=== PATIENT | female | born 1945 | race Caucasian/White ===

== ENCOUNTER 2016-12-28 09:59 | Outpatient (CLI) | payer MEDICARE ==
--- NOTE | 2016-12-31 16:00 | Mammography Report ---
DIGITAL SCREENING MAMMOGRAM: 12/28/2016 CLINICAL INDICATION: A 71-year-old, for screening. COMPARISON: 11/2013, 05/2012, 11/2009, 12/2007. TECHNIQUE: Routine CC and MLO projections were obtained of the breasts. FINDINGS: The breasts demonstrate scattered fibroglandular densities bilaterally. A circumscribed no dule in the central right breast is stable. Coarse, typically benign calcifications are present. No s uspicious masses, clustered microcalcifications, or regions of architectural distortion are identifie d. IMPRESSION: BENIGN FINDINGS. RECOMMENDATION: ROUTINE ANNUAL SCREENING UNLESS OTHERWISE CLINICALLY INDICATED. BIRADS CATEGORY 2-BENIGN FINDINGS. STANDARD QUALIFYING STATEMENTS 1. This examination was reviewed with the aid of Computer-Aided Detection (CAD). 2. A negative or benign imaging report should not delay biopsy if clinically suspicious findings are present. Consider surgical consultation if warranted. More than 5% of cancers are not identified by i maging. 3. Dense breasts may obscure an underlying neoplasm. JOB #: [id number] EXT JOB #:[id number]
== END 2016-12-28 10:00 | disposition home or self-care (01) ==
LOC: DI 09:59
PROVIDERS: ATTEND Physician Assistant Medical
DX: Z12.31 Encounter for screening mammogram for malignant neoplasm of breast (principal)
CPT/HCPCS: 77067

== ENCOUNTER 2018-01-13 11:50 | Emergency (ER) | payer MEDICARE ==
[2018-01-13 13:00] LABS: BASOPHILS # (AUTO) 0.1 10^3/uL (0.0-0.1); BASOPHILS % (AUTO) 1.3 %; EOSINOPHILS # (AUTO) 0.1 10^3/uL (0.0-0.7); EOSINOPHILS % (AUTO) 1.6 %; LYMPHOCYTES # (AUTO) 2.6 10^3/uL (1.5-3.5); LYMPHOCYTES % (AUTO) 29.2 %; MEAN CORPUSCULAR HEMOGLOBIN 30.6 pg (27.0-31.0); MEAN CORPUSCULAR VOLUME 90.1 fL (81.0-99.0); MONOCYTES # (AUTO) 0.6 10^3/uL (0.0-1.0); MONOCYTES % (AUTO) 7.4 %; NEUTROPHILS # (AUTO) 5.3 10^3/uL (1.5-6.6); NEUTROPHILS % (AUTO) 60.5 %; PLT - PLATELET COUNT 358 10^3/uL (130-450); RED BLOOD COUNT 4.24 10^6/uL (4.20-5.40); RED CELL DISTRIBUTION WIDTH 12.7 % (12.0-15.0); WHITE BLOOD COUNT 8.8 x10^3/uL (4.8-10.8)
[2018-01-13 13:03] LABS: ALBUMIN 4.1 g/dL (3.2-5.5); ALBUMIN/GLOBULIN RATIO 1.2 (1.0-2.2); BILIRUBIN,TOTAL 0.4 mg/dL (0.2-1.0); CALCIUM 8.9 mg/dL (8.5-10.3); CREATININE 0.8 mg/dL (0.4-1.0); TOTAL PROTEIN 7.6 g/dL (6.7-8.2)
--- NOTE | 2018-01-13 13:08 | ED Physician Documentation ---
PD HPI NVD - Stated complaint Stated Complaint: DIARRHEA - Chief complaint Chief Complaint: Abd Pain - History obtained from History obtained from: Patient - History of Present Illness Timing - onset: How many days ago (10) Timing - duration: Days (10) Timing - details: Gradual onset, Waxing and waning Associated symptoms: Abdominal pain (left abdoemn), Loss of appetite. No: Fever , Melena, Hematochezia, Near syncope / syncope, Weight loss, Dysuria, Hematuria Contributing factors: Other (has had loose, not watery, stools daily or so for the past 10 days. Not overt diarrhea per se.). No: Sick contact, Bad food, Travel, Recent antibiotics Improved by: Laying still. No: Eating Worsened by: Moving (hurts with walking and movement.), Palpation. No: Eating Similar symptoms before: Has not had sx before Recently seen: Not recently seen Review of Systems Constitutional: reports: Myalgias, Fatigue. denies: Fever, Chills Ears: denies: Ear pain Nose: denies: Rhinorrhea / runny nose, Congestion Throat: denies: Dental pain / toothache (but has noted bilateral jaw pain the past week or so, no gum swelling. No clicking with chewing. Does hurt more to chew.), Sore throat Cardiac: denies: Chest pain / pressure, Palpitations Respiratory: denies: Dyspnea, Cough GI: reports: Abdominal Pain (left abd), Nausea, Diarrhea (loose and just daily, without blood nor melena.). denies: Vomiting, Constipation, Hematemesis, Bloody / black stool : denies: Dysuria, Frequency Skin: denies: Rash, Lesions Neurologic: reports: Generalized weakness, Headache (mild frontal). 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: Hysterectomy HEENT: Tonsil/Adenoidectomy - Present Medications Home Medications: Ambulatory Orders Medication Instructions Recorded Confirmed Gabapentin 900 mg PO 01/13/18 HYDROcod/ACETAM 5/325 [[place] 5/325] 1 tab PO Q6H PRN #15 tablet 01/13/18 Lisinopril 20 mg PO 01/13/18 Naproxen 375 mg PO BID #20 tablet 01/13/18 - Allergies Allergies/Adverse Reactions: Allergies Allergy/AdvReac Type Severity Reaction Status Date / Time Penicillins Allergy Rash Verified 01/13/18 11:57 - Social History Does the pt smoke?: No Smoking Status: Never smoker Does the pt drink ETOH?: No Does the pt have substance abuse?: No - Family History Family history: reports: Non contributory - Immunizations Immunizations are current?: Yes PD ED PE NORMAL - Vitals Vital signs reviewed: Yes - General General: Alert and oriented X 3, Well developed/nourished - HEENT HEENT: Ears normal, Pharynx benign, Dentition benign, Other (not tender at TMJ per se; no clicking. ) - Neck Neck: Supple, no meningeal sign, No adenopathy - Cardiac Cardiac: RRR, No murmur - Respiratory Respiratory: No respiratory distress, Clear bilaterally - Abdomen Abdomen: Normal bowel sounds, Soft, Non tender, No organomegaly, Other ( tenderness left mid abdomen, without guarding nor percussion tenderness. Pain worse with leg lifting. Right abd not tender. No flank tenderness. ) - Female Female : Deferred - Rectal Rectal: Deferred - Back Back: No CVA TTP, No spinal TTP - Derm Derm: Normal color, Warm and dry, No rash - Extremities Extremities: No deformity, No tenderness to palpate, Normal ROM s pain, No edema , No calf tenderness / cord - Neuro Neuro: Alert and oriented X 3, No motor deficit, Normal speech Results - Vitals Vitals: Vital Signs - 24 hr 01/13/18 01/13/18 01/13/18 11:52 13:43 14:52 Temperature 36.5 C Heart Rate 65 60 61 Respiratory 16 16 17 Rate Blood Pressure 177/79 H 168/78 H 156/80 H O2 Saturation 98 99 100 01/13/18 16:44 Temperature Heart Rate 64 Respiratory 16 Rate Blood Pressure 178/86 H O2 Saturation 100 Oxygen O2 Source Room air - Labs Labs: Laboratory Tests 01/13/18 01/13/18 01/13/18 12:22 12:30 12:30 WBC 8.8 RBC 4.24 Hgb 13.0 Hct 38.2 MCV 90.1 MCH 30.6 MCHC 34.0 RDW 12.7 Plt Count 358 MPV 7.0 L Neut # (Auto) 5.3 Lymph # (Auto) 2.6 [place] # (Auto) 0.6 Eos # (Auto) 0.1 Baso # (Auto) 0.1 Absolute Nucleated RBC 0.01 Nucleated RBC % 0.1 Manual Slide Review Indicated RBC Morph Micro Appear 1+ ANISOCYTOSIS Sodium 133 L Potassium 3.7 Chloride 98 L Carbon Dioxide 29 Anion Gap 6.0 BUN 12 Creatinine 0.8 Estimated GFR (MDRD) 70 L Glucose 98 POC Whole Bld Glucose 115 H Calcium 8.9 Total Bilirubin 0.4 AST 25 ALT 21 Alkaline Phosphatase 65 Total Protein 7.6 Albumin 4.1 Globulin 3.5 Albumin/Globulin Ratio 1.2 Lipase 42 Urine Color Urine Clarity Urine pH Ur Specific [place] Urine Protein Urine Glucose (UA) Urine Ketones Urine Occult Blood Urine Nitrite Urine Bilirubin Urine Urobilinogen Ur Leukocyte Esterase Ur Microscopic Review Urine Culture Comments 01/13/18 13:12 WBC RBC Hgb Hct MCV MCH MCHC RDW Plt Count MPV Neut # (Auto) Lymph # (Auto) [place] # (Auto) Eos # (Auto) Baso # (Auto) Absolute Nucleated RBC Nucleated RBC % Manual Slide Review RBC Morph Micro Appear Sodium Potassium Chloride Carbon Dioxide Anion Gap BUN Creatinine Estimated GFR (MDRD) Glucose POC Whole Bld Glucose Calcium Total Bilirubin AST ALT Alkaline Phosphatase Total Protein Albumin Globulin Albumin/Globulin Ratio Lipase Urine Color YELLOW Urine Clarity CLEAR Urine pH 6.0 Ur Specific [place] <=1.005 Urine Protein NEGATIVE Urine Glucose (UA) NEGATIVE Urine Ketones NEGATIVE Urine Occult Blood NEGATIVE Urine Nitrite NEGATIVE Urine Bilirubin NEGATIVE Urine Urobilinogen 0.2 (NORMAL) Ur Leukocyte Esterase NEGATIVE Ur Microscopic Review NOT INDICATED Urine Culture Comments NOT INDICATED - Rads (name of study) abd CT Radiology: Final report received, Discussed with rads (mass left iliacus muscle that could be c/w hematoma, abscess, tumor - did not narrow it better.) PD MEDICAL DECISION MAKING - ED course Complexity details: reviewed results (mass in left iliacus muscle - could be abscess, hematoma, sarcoma (seems to look more solid than fluid, but clots could have that look) - broad differential from Radiologist. ), considered differential, d/w patient, d/w datapower consultant (Gregory Ramírez, surgery - he will arrange biopsy/draining of the mass. Since normal WBC, no fever, and she is not appearing ill, he did not think it abscess. He did not feel she would need hospitalization, but the treatment can be done outpatient through IR in next couple of days. ) - Sepsis Event Vital Signs: Vital Signs - 24 hr 01/13/18 01/13/18 01/13/18 11:52 13:43 14:52 Temperature 36.5 C Heart Rate 65 60 61 Respiratory 16 16 17 Rate Blood Pressure 177/79 H 168/78 H 156/80 H O2 Saturation 98 99 100 01/13/18 16:44 Temperature Heart Rate 64 Respiratory 16 Rate Blood Pressure 178/86 H O2 Saturation 100 Oxygen O2 Source Room air Departure - Departure Disposition: Home, Self Care Clinical Impression: Muscle mass Condition: Stable Record reviewed to determine appropriate education?: Yes Instructions: Abdominal Pain Follow-Up: Odilon Ramírez MD [Provider Admit Priv/Credential] - Karey Montiel PA-C [Primary Care Provider] - Prescriptions: HYDROcod/ACETAM 5/325 [[place] 5/325] 1 tab PO Q6H PRN #15 tablet PRN Reason: Pain Naproxen 375 mg PO BID #20 tablet Comments: Use naproxen twice daily for inflammation and pain. Add Tylenol or hydrocodone if needed for pain. Call Dr. Ramírez's office (surgeon) today or first thing in the morning for an appointment in the next 2-3 days. You have a mass in the iliacus muscle on the left which could be a small area of bleeding (hematoma), tumor, or abscess. You do not have markers of infection such as fever or elevated white count so does not seem like an infection. This will need to have a aspiration/biopsy to get rid of it and diagnose it. Dr. Ramírez will set that up in the next couple of days. Discharge Date/Time: 01/13/18 16:45
[2018-01-13 13:27] LABS: BILIRUBIN,URINE NEGATIVE (NEGATIVE); GLUCOSE, URINE (UA) NEGATIVE (NEGATIVE); KETONES,URINE (UA) NEGATIVE (NEGATIVE); LEUKOCYTE ESTERASE, URINE NEGATIVE (NEGATIVE); NITRITE,URINE NEGATIVE (NEGATIVE); OCCULT BLOOD,URINE NEGATIVE (NEGATIVE); PROTEIN,URINE NEGATIVE (NEGATIVE); UROBILINOGEN,URINE 0.2 (NORMAL) E.U./dL (NORMAL)
[2018-01-13 13:28] LABS: CLARITY,URINE CLEAR (CLEAR)
[2018-01-13] MEDS ORDERED: ONDANSETRON 4 MG/2 ML VIAL IVP STA (13:29)
[2018-01-13] MEDS ORDERED: SODIUM CHLORIDE 0.9% 1,000 ML IV ONE (13:29)
[2018-01-13] MEDS ORDERED: KETOROLAC 15 MG/ML VIAL IVP STA (13:29)
[2018-01-13 13:31] LABS: RBC MORPHOLOGY (MULTIPLE) 1+ ANISOCYTOSIS (NORMAL)
[2018-01-13] MEDS ORDERED: IOPAMIDOL-300 100 ML VIAL ONE (14:23)
[2018-01-13] MEDS ORDERED: IOPAMIDOL-300 100 ML VIAL IVP ONE (14:52)
--- NOTE | 2018-01-13 15:45 | CT Report ---
Procedure Date: 01/13/2018 Accession Number: [id number] / [id number] Procedure: CT - Abdomen/Pelvis W/ CPT Code: FULL RESULT: EXAM: CT ABDOMEN AND PELVIS EXAM DATE: 01/13/2018 03:03 PM. CLINICAL HISTORY: Left abdominal pain and diarrhea. COMPARISONS: No prior CT exam. Limited abdominal ultrasound 02/28/2016. TECHNIQUE: Routine helical CT imaging was performed through the abdomen and pelvis. IV contrast: ISOVUE 300 100mL. Enteric contrast: No. Reconstructions: Coronal and sagittal. In accordance with CT protocol optimization, one or more of the following dose reduction techniques were utilized for this exam: automated exposure control, adjustment of mA and/or KV based on patient size, or use of iterative reconstructive technique. FINDINGS: Lung Bases: Unremarkable. Liver: Normal. No masses. Gallbladder/Bile Ducts: Cholecystectomy. No biliary duct dilatation. Spleen: Normal caliber. Multiple 2 cm and smaller nonspecific low densities. Pancreas: Normal. Adrenal Glands: Normal. Kidneys: Normal. No masses or hydronephrosis. Peritoneal Cavity/Bowel: Normal. No free fluid, free air or adenopathy. No masses or acute inflammatory process. Appendix not visualized but no inflammatory changes adjacent to the cecum. Pelvic Organs: Hysterectomy. 5.5 x 4.5 x 3.2 cm inhomogeneous and enhancing lesion in the inferior lateral aspect left iliacus muscle, at the level of the left inguinal canal, axial image 56, coronal image 19. This causes medial displacement of the left external iliac vein. No free fluid. No stones in the small caliber urinary bladder. Vasculature: No aneurysms or other significant abnormality. Bones: Multilevel degenerative disk disease throughout the scoliotic spine. Left total hip replacement. Other: None. IMPRESSION: 1. 5.5 x 4.5 x 3.2 cm complex enhancing lesion left iliacus muscle, minimally protruding into the left inguinal region. Differential includes abscess, active bleeding, sarcoma, metastatic disease. This equivocally abuts the superior most aspect of the left total hip replacement such that the full differential would include etiology arising from the left hip joint. 2. Multiple splenic lesions, indeterminate significance. Although these may represent benign hemangiomas and/or cysts, metastatic disease also included in the differential. RADIA The above findings were discussed with [facility] Fall by Dr. Kirsten Castillo at 15:44 hrs on 01/13/18.
[2018-01-13 16:45] VITALS: BP 178/86
== END 2018-01-13 16:45 | disposition home or self-care (01) ==
LOC: ED 11:50
DX: R19.09 Other intra-abdominal and pelvic swelling, mass and lump (principal); Z96.649 Presence of unspecified artificial hip joint
CPT/HCPCS: 74177; 80053; 81003; 83690; 85025; 96361; 96374; 96375; 99283; Q9967; 36415; 81001; 87086

== ENCOUNTER 2018-02-21 11:06 | Outpatient (CLI) | payer MEDICARE ==
[2018-02-21 12:05] LABS: PT - PROTHROMBIN TIME 11.2 secs (9.9-12.6)
== END 2018-02-21 11:07 | disposition home or self-care (01) ==
LOC: LAB 11:06
PROVIDERS: ATTEND Internal Medicine Gastroenterology
DX: Z01.812 Encounter for preprocedural laboratory examination (principal); R19.00 Intra-abdominal and pelvic swelling, mass and lump, unspecified site
CPT/HCPCS: 36415; 85610; 85730

== ENCOUNTER 2018-02-24 09:50 | Day surgery (SDC) | payer MEDICARE ==
[2018-02-24] MEDS ORDERED: LACTATED RINGERS 1,000 ML IV ONE (09:52)
[2018-02-24] MEDS ORDERED: LIDOCAINE 1% 50 ML MDV ONE (10:34)
[2018-02-24] MEDS ORDERED: LIDOCAINE MPF 1%-EPI 1:200000 30 ML VIAL ONE (10:35)
--- NOTE | 2018-02-24 10:56 | ANESTHESIA ---
Pre-Anesthesia VS, & Labs - Diagnosis left pelvic mass - Procedure Ultrasound guided needle biopsy left pelvic mass Vital Signs: 139/70 63 99% 16 36.7 Height 5 ft Body Mass Index 24.4 - NPO >8 hours - Is Patient ?: No Home Medications and Allergies Home Medications: Ambulatory Orders Medication Instructions Recorded Confirmed Gabapentin 900 mg PO DAILY PM 01/13/18 02/21/18 HYDROcod/ACETAM 5/325 [[place] 5/325] 1 tab PO Q6H PRN #15 tablet 01/13/18 Lisinopril 20 mg PO DAILY 01/13/18 02/21/18 Naproxen 375 mg PO BID #20 tablet 01/13/18 02/21/18 Allergies/Adverse Reactions: Allergies Allergy/AdvReac Type Severity Reaction Status Date / Time Penicillins Allergy Rash Verified 02/21/18 13:17 Anes History & Medical History - Anesthetic History Anesthesia Complications: reports: No previous complications - Medical History Cardiovascular: reports: None, Hypertension Pulmonary: reports: None Gastrointestinal: reports: None Urinary: reports: None Neuro: reports: None Musculoskeletal: reports: None Endocrine/Autoimmune: reports: None Blood Disorders: reports: None Skin: reports: None Smoking Status: Never smoker Psychosocial: reports: No issues indicated - Surgical History General: Cholecystectomy, Appendectomy Eyes Ears Nose Throat (EENT): Tonsil/Adenoidectomy Gynecologic: Hysterectomy Orthopedic: Hip replacement, Spine surgery (cervical) Exam General: Alert Dental: WNL Mouth Opening: Greater than 4 Fingerbreadths Neck Mobility: Reduced Mallampati classification: II Mental/Cognitive Status: Alert/Oriented X3 Plan Anesthesia Type: MAC Consent for Procedure(s) Verified and Reviewed: Yes Code Status: Attempt Resuscitation ASA classification: 2-Mild systemic disease Is this case an emergency?: No
[2018-02-24] MEDS ORDERED: LIDOCAINE-MPF 1% 30 ML VIAL ONE (11:18)
[2018-02-24] MEDS ORDERED: PROPOFOL 200 MG/20 ML VIAL IVP ONE (12:00)
[2018-02-24] MEDS ORDERED: LIDOCAINE-MPF 2% 5 ML VIAL IM ONE (12:00)
[2018-02-24] MEDS ORDERED: fentaNYL 100 MCG/2 ML VIAL IVP ONE (12:00)
[2018-02-24] MEDS ORDERED: MIDAZOLAM 2 MG/2 ML VIAL IVP ONE (12:00)
[2018-02-24] MEDS ORDERED: LIDOCAINE 1% 50 ML MDV SUBQ ONE ×2 (12:00)
[2018-02-24 13:43] VITALS: BP 141/70
--- NOTE | 2018-02-24 14:08 | Ultrasound Report ---
Reason: LT PELVIC MASS Procedure Date: 02/24/2018 Accession Number: [id number] / [id number] Procedure: US - Pelvic Complete CPT Code: FULL RESULT: EXAM: PELVIC ULTRASOUND EXAM DATE: 02/24/2018 12:10 PM. CLINICAL HISTORY: Abdominal pain with discovery of a pelvic mass. COMPARISON: ABDOMEN/PELVIS W/ 01/13/2018. FINDINGS/TECHNIQUE: Grayscale and limited color Doppler images of the known pelvic mass were obtained to determine feasibility of a percutaneous ultrasound-guided biopsy and establish a safe route. The mass is again demonstrated in a safe needle pathway avoiding the iliac vasculature as well as the epigastric vasculature was selected for the future procedure. Information Technology Technician images were obtained. The mass did not demonstrate significant vascularity on ultrasound. IMPRESSION: Soft tissue percutaneous ultrasound of a known pelvic mass. RADIA
--- NOTE | 2018-02-24 14:09 | Ultrasound Report ---
Reason: LT PELVIC MASS Procedure Date: 02/24/2018 Accession Number: [id number] / [id number] Procedure: US - Biopsy Muscle Percutaneous CPT Code: 51602 FULL RESULT: PROCEDURE: ULTRASOUND GUIDED BIOPSY PREOPERATIVE DIAGNOSIS: Mass in left iliacus muscle, possibly malignant. POSTOPERATIVE DIAGNOSIS: Same TECHNIQUE: Following written and oral informed consent including procedure risks and alternatives, the patient was brought to the operating room and positioned. Using local anesthesia, sterile technique, and direct ultrasound control, a guiding needle was advanced to the mass. A total of 5 core samples were obtained. Once adequate tissue had been obtained, the guiding needle was removed. The patient tolerated the procedure well and there were no immediate complications. ANESTHESIA: The anesthesiology department performed anesthesia care. CHICKEN HANGER: Dr. Louise. ESTIMATED BLOOD LOSS: Minimal FLUOROSCOPY TIME: None. COMPLICATIONS: None. CONDITION: Good. SPECIMEN: 18 Gauge core biopsy x 5. IMPLANTS: None. FINDINGS: Real-time ultrasound performed with static images saved to the PACS demonstrating the needle directed into the mass. IMPRESSION: Uncomplicated ultrasound guided biopsy as described. Pathology results will be reported separately. RADIA
== END 2018-02-24 09:51 | disposition home or self-care (01) ==
LOC: SDS 09:50 → DI 09:50 → SDS 09:51 → EDSTATUS 10:45
PROVIDERS: ATTEND Internal Medicine Gastroenterology
PROC: 0KBG3ZX Excision of Left Trunk Muscle, Percutaneous Approach, Diagnostic (ICD-10-PCS; principal; 2018-02-24 11:15)
DX: R19.09 Other intra-abdominal and pelvic swelling, mass and lump (principal); I10 Essential (primary) hypertension
CPT/HCPCS: 20206; 76856; 76942; J7120

== ENCOUNTER 2018-03-24 11:26 | Outpatient (CLI) | payer MEDICARE ==
[2018-03-24 11:54] LABS: ALBUMIN 4.3 g/dL (3.2-5.5); ALBUMIN/GLOBULIN RATIO 1.6 (1.0-2.2); BILIRUBIN,TOTAL 0.4 mg/dL (0.2-1.0); CALCIUM 9.8 mg/dL (8.5-10.3); CREATININE 0.7 mg/dL (0.4-1.0)
== END 2018-03-24 11:27 | disposition home or self-care (01) ==
LOC: LAB 11:26
PROVIDERS: ATTEND Internal Medicine Gastroenterology
DX: D73.89 Other diseases of spleen (principal); I10 Essential (primary) hypertension
CPT/HCPCS: 36415; 80053

== ENCOUNTER 2018-08-10 10:00 | Emergency (ER) | payer MEDICARE ==
[2018-08-10] MEDS ORDERED: SODIUM CHLORIDE 0.9% 1,000 ML IV ONE (10:56)
--- NOTE | 2018-08-10 11:12 | ED Physician Documentation ---
History of Present Illness - Stated complaint Stated Complaint: DIARRHEA - Chief complaint Chief Complaint: Abd Pain - History obtained from History obtained from: Patient - History of Present Illness Timing: How many weeks ago (1) Pain level max: 0 Pain level now: 0 - Additonal information Additional information: 72-year-old female presents to the emergency department with body aches, intermittent fevers, cough and congestion for the past week. Started having diarrhea 2 days ago. States she is feeling tired and weak. She is supposed to fly to the [facility] tomorrow. No vomiting. No abdominal pain. Nothing makes it better or worse. did not receive her flu shot this year. Review of Systems Constitutional: reports: Chills Respiratory: reports: Cough GI: denies: Vomiting Skin: denies: Rash Musculoskeletal: denies: Neck pain, Back pain Neurologic: denies: Headache PD PAST MEDICAL HISTORY - Past Medical History Past Medical History: Yes Cardiovascular: Hypertension Respiratory: None Neuro: None, Headaches, Other Endocrine/Autoimmune: None GI: None MANAGER MECHANICAL: Other : None HEENT: None Psych: Anxiety Musculoskeletal: Osteoarthritis Derm: None Other Past Medical History: spinal stenois, cervical cancer - Past Surgical History Past Surgical History: Yes General: Cholecystectomy, Appendectomy Ortho: Hip replacement, Spine surgery /MANAGER MECHANICAL: Hysterectomy HEENT: Tonsil/Adenoidectomy - Present Medications Home Medications: Ambulatory Orders Medication Instructions Recorded Confirmed Gabapentin 900 mg PO DAILY PM 01/13/18 02/24/18 Lisinopril 20 mg PO DAILY 01/13/18 02/24/18 Benzonatate [Tessalon Perle] 100 - 200 mg PO TID PRN #30 capsule 08/10/18 Ondansetron Odt [Zofran] 4 mg TL Q6H PRN #10 tablet 08/10/18 - Allergies Allergies/Adverse Reactions: Allergies Allergy/AdvReac Type Severity Reaction Status Date / Time Penicillins Allergy Rash Verified 08/10/18 10:22 - Social History Does the pt smoke?: No Smoking Status: Never smoker Does the pt drink ETOH?: No Does the pt have substance abuse?: No - Immunizations Immunizations are current?: Yes - POLST Patient has POLST: No PD ED PE NORMAL - Vitals Vital signs reviewed: Yes - General General: Alert and oriented X 3, No acute distress - HEENT HEENT: Moist mucous membranes - Neck Neck: Supple, no meningeal sign, No adenopathy - Cardiac Cardiac: RRR, Strong equal pulses - Respiratory Respiratory: No respiratory distress, Clear bilaterally - Abdomen Abdomen: Soft, Non tender, Non distended - Back Back: No spinal TTP - Derm Derm: Warm and dry - Extremities Extremities: No edema - Neuro Neuro: Alert and oriented X 3 - Psych Psych: Normal mood, Normal affect Results - Vitals Vitals: Vital Signs - 24 hr 08/10/18 08/10/18 10:20 12:32 Temperature 36.2 C L 36.7 C Heart Rate 71 62 Respiratory 18 18 Rate Blood Pressure 138/76 H 152/69 H O2 Saturation 99 99 Oxygen O2 Source Room air - Labs Labs: Laboratory Tests 08/10/18 08/10/18 08/10/18 11:19 11:19 11:19 WBC 4.3 L RBC 4.13 L Hgb 12.6 Hct 36.8 L MCV 89.0 MCH 30.6 MCHC 34.4 RDW 12.8 Plt Count 251 MPV 7.3 L Neut # (Auto) 1.8 Lymph # (Auto) 1.7 [place] # (Auto) 0.6 Eos # (Auto) 0.1 Baso # (Auto) 0.1 Absolute Nucleated RBC 0.01 Nucleated RBC % 0.1 Sodium 139 Potassium 3.6 Chloride 100 L Carbon Dioxide 31 Anion Gap 8.0 BUN 11 Creatinine 0.6 Estimated GFR (MDRD) 98 Glucose 84 Calcium 8.8 Total Bilirubin 0.3 AST 43 H ALT 30 Alkaline Phosphatase 72 Total Protein 7.6 Albumin 3.8 Globulin 3.8 Albumin/Globulin Ratio 1.0 Lipase 46 Urine Color Urine Clarity Urine pH Ur Specific [place] Urine Protein Urine Glucose (UA) Urine Ketones Urine Occult Blood Urine Nitrite Urine Bilirubin Urine Urobilinogen Ur Leukocyte Esterase Ur Microscopic Review Urine Culture Comments Influenza A (Rapid) Negative Influenza B (Rapid) Negative 08/10/18 11:19 WBC RBC Hgb Hct MCV MCH MCHC RDW Plt Count MPV Neut # (Auto) Lymph # (Auto) [place] # (Auto) Eos # (Auto) Baso # (Auto) Absolute Nucleated RBC Nucleated RBC % Sodium Potassium Chloride Carbon Dioxide Anion Gap BUN Creatinine Estimated GFR (MDRD) Glucose Calcium Total Bilirubin AST ALT Alkaline Phosphatase Total Protein Albumin Globulin Albumin/Globulin Ratio Lipase Urine Color YELLOW Urine Clarity CLEAR Urine pH 7.0 Ur Specific [place] 1.010 Urine Protein NEGATIVE Urine Glucose (UA) NEGATIVE Urine Ketones NEGATIVE Urine Occult Blood NEGATIVE Urine Nitrite NEGATIVE Urine Bilirubin NEGATIVE Urine Urobilinogen 0.2 (NORMAL) Ur Leukocyte Esterase NEGATIVE Ur Microscopic Review NOT INDICATED Urine Culture Comments NOT INDICATED Influenza A (Rapid) Influenza B (Rapid) - Rads (name of study) Chest x-ray Radiology: Prelim report reviewed, EMP read contemporaneously, See rad report (No acute disease in the chest. 12 mm density projected over the left lung apex possibly overlying the patient or within the lung parenchyma. Once patient's acute clinical symptoms have improved, follow-up apical lordotic view of the chest recommended. ) PD MEDICAL DECISION MAKING - ED course Complexity details: reviewed results, re-evaluated patient, considered differential, d/w patient ED course: Patient is a 72-year-old female who presents to the emergency department what appears to be an acute viral syndrome. She was given IV fluids and feels better. She is well-appearing, nontoxic. Afebrile. No hypoxia. We will continue supportive care and follow-up with her doctor. Patient counseled regarding signs and symptoms for which I believe and urgent re-evaluation would be necessary. Patient with good understanding of and agreement to plan and is comfortable going home at this time This document was made in part using voice recognition software. While efforts are made to proofread this document, sound alike and grammatical errors may occur. Departure - Departure Disposition: 01 Home, Self Care Clinical Impression: Viral syndrome Condition: Good Instructions: ED Viral Syndrome Follow-Up: Karey Montiel PA-C [Primary Care Provider] - Within 1 week Prescriptions: Benzonatate [Tessalon Perle] 100 - 200 mg PO TID PRN #30 capsule PRN Reason: Cough Ondansetron Odt [Zofran] 4 mg TL Q6H PRN #10 tablet PRN Reason: Nausea / Vomiting Comments: Return if you worsen. Drink plenty of fluids and rest. It is recommended that you have a repeat chest x-ray when you are feeling better. 12 mm density projected over the left lung apex possibly overlying the patient or within the lung parenchyma. Once patient's acute clinical symptoms have i mproved, follow-up apical lordotic view of the chest recommended. Discharge Date/Time: 08/10/18 12:38
[2018-08-10 11:27] LABS: BILIRUBIN,URINE NEGATIVE (NEGATIVE); GLUCOSE, URINE (UA) NEGATIVE (NEGATIVE); KETONES,URINE (UA) NEGATIVE (NEGATIVE); LEUKOCYTE ESTERASE, URINE NEGATIVE (NEGATIVE); NITRITE,URINE NEGATIVE (NEGATIVE); OCCULT BLOOD,URINE NEGATIVE (NEGATIVE); PROTEIN,URINE NEGATIVE (NEGATIVE); UROBILINOGEN,URINE 0.2 (NORMAL) E.U./dL (NORMAL)
[2018-08-10 11:31] LABS: CLARITY,URINE CLEAR (CLEAR)
[2018-08-10 11:35] LABS: BASOPHILS # (AUTO) 0.1 10^3/uL (0.0-0.1); BASOPHILS % (AUTO) 1.4 %; EOSINOPHILS # (AUTO) 0.1 10^3/uL (0.0-0.7); EOSINOPHILS % (AUTO) 3.2 %; HGB - HEMOGLOBIN 12.6 g/dL (12.0-16.0); LYMPHOCYTES # (AUTO) 1.7 10^3/uL (1.5-3.5); LYMPHOCYTES % (AUTO) 38.9 %; MEAN CORPUSCULAR HEMOGLOBIN 30.6 pg (27.0-31.0); MEAN CORPUSCULAR HGB CONC 34.4 g/dL (32.0-36.0); MEAN PLATELET VOLUME 7.3 fL (7.9-10.8); MONOCYTES # (AUTO) 0.6 10^3/uL (0.0-1.0); MONOCYTES % (AUTO) 14.7 %; NEUTROPHILS # (AUTO) 1.8 10^3/uL (1.5-6.6); NEUTROPHILS % (AUTO) 41.8 %; PLT - PLATELET COUNT 251 10^3/uL (130-450); RED BLOOD COUNT 4.13 10^6/uL (4.20-5.40); RED CELL DISTRIBUTION WIDTH 12.8 % (12.0-15.0); WHITE BLOOD COUNT 4.3 x10^3/uL (4.8-10.8)
[2018-08-10 11:42] LABS: ALBUMIN 3.8 g/dL (3.2-5.5); BILIRUBIN,TOTAL 0.3 mg/dL (0.2-1.0); CALCIUM 8.8 mg/dL (8.5-10.3); CREATININE 0.6 mg/dL (0.4-1.0); TOTAL PROTEIN 7.6 g/dL (6.7-8.2)
--- NOTE | 2018-08-10 11:59 | XRAY Report ---
Reason: fough, fever x 1 week Procedure Date: 08/10/2018 Accession Number: [id number] / [id number] Procedure: XR - Chest 2 View X-Ray CPT Code: 90116 FULL RESULT: EXAM: CHEST RADIOGRAPHY EXAM DATE: 08/10/2018 11:31 AM. CLINICAL HISTORY: Cough and fever. COMPARISON: CHEST 2 VIEW PA/LAT 02/28/2016 9:46 AM. TECHNIQUE: 2 views. FINDINGS: Lungs/Pleura: No focal opacities evident. No pleural effusion. No pneumothorax. Normal volumes. Density seen projected of the left lung apex measuring 12 mm. Mediastinum: Cardiomegaly. Aortic tortuosity. Aortic atherosclerosis. Other: Degenerative changes. Dextroscoliosis of the lumbar spine. IMPRESSION: 1. No acute disease in the chest. 2. 12 mm density projected over the left lung apex possibly overlying the patient or within the lung parenchyma. Once patient's acute clinical symptoms have improved, follow-up apical lordotic view of the chest recommended. RADIA
[2018-08-10 12:33] VITALS: BP 152/69
== END 2018-08-10 12:38 | disposition home or self-care (01) ==
LOC: ED 10:00
DX: B34.9 Viral infection, unspecified (principal); I10 Essential (primary) hypertension
CPT/HCPCS: 36415; 71046; 80053; 81001; 81003; 83690; 85025; 87086; 87275; 87276; 96360; 99283

== ENCOUNTER 2018-08-18 15:17 | Outpatient (CLI) | payer MEDICARE ==
--- NOTE | 2018-08-19 16:01 | XRAY Report ---
Reason: URI Procedure Date: 08/18/2018 Accession Number: [id number] / [id number] Procedure: WCP - Chest 1 View X-Ray CPT Code: 79661 FULL RESULT: EXAM: CHEST RADIOGRAPHY. EXAM DATE: 08/18/2018 03:35 PM. CLINICAL HISTORY: Urinary tract infection. COMPARISON: Chest 2 view 08/18/2018 3:21 PM, chest 2 view 08/10/2018 11:21 AM. TECHNIQUE: 1 view. FINDINGS: Lungs/Pleura: Patchy right medial basilar/infrahilar opacity and bronchial thickening. No pneumothorax. Mediastinum: Heart size and mediastinal contour are stable. Other: Dextroscoliosis of mid and lower thoracic and upper lumbar spine. IMPRESSION: 1. Patchy right medial basilar/ infrahilar opacity and bronchial thickening, early consolidation versus focal bronchitis. RADIA
--- NOTE | 2018-08-19 16:02 | XRAY Report ---
Reason: URI Procedure Date: 08/18/2018 Accession Number: [id number] / [id number] Procedure: WCP - Chest 2 View X-Ray CPT Code: 96972 FULL RESULT: EXAM: CHEST RADIOGRAPHY. EXAM DATE: 08/18/2018 03:35 PM. CLINICAL HISTORY: Upper respiratory infection. COMPARISON: Chest 2 view 08/10/2018 11:21 AM, chest 1 view 08/18/2018 3:24 PM. TECHNIQUE: 2 views. FINDINGS: Lungs/Pleura: Right medial basilar/ infrahilar opacity and bronchial thickening. No vascular congestion. No pneumothorax. No pleural effusions. Mediastinum: Heart size and mediastinal contour are stable. Other: Degenerative changes of the thoracic spine. Dextroscoliosis of the mid and lower thoracic and upper lumbar spine. Changes are again seen from cholecystectomy and inferior cervical fusion. IMPRESSION: 1. Right medial basilar/infrahilar opacity and bronchial thickening, focal bronchitis or early consolidation noting that findings are not significantly changed. RADIA
== END 2018-08-18 15:18 | disposition home or self-care (01) ==
LOC: DI.WCP 15:17
PROVIDERS: ATTEND Physician Assistant Medical
DX: R91.8 Other nonspecific abnormal finding of lung field (principal)
CPT/HCPCS: 71045; 71046; 71047

== ENCOUNTER 2018-09-25 10:19 | Outpatient (CLI) | payer MEDICARE ==
--- NOTE | 2018-09-25 12:33 | XRAY Report ---
Reason: PNEUMONIA Procedure Date: 09/25/2018 Accession Number: [id number] / [id number] Procedure: WCP - Chest 2 View X-Ray CPT Code: 98833 FULL RESULT: EXAM: CHEST RADIOGRAPHY EXAM DATE: 09/25/2018 10:27 AM. CLINICAL HISTORY: PNEUMONIA. COMPARISON: CHEST 1 VIEW 08/18/2018 3:24 PM. TECHNIQUE: 2 views. FINDINGS: Lungs/Pleura: The previously seen patchy right medial lower lung opacities have resolved. No focal opacities evident. No pleural effusion. No pneumothorax. High normal lung volumes. Mediastinum: The cardiomediastinal silhouette is stable from prior, no cardiomegaly. Other: Presumed cholecystectomy clips. ACDF hardware. Partially imaged thoracolumbar scoliosis. IMPRESSION: No acute airspace disease. RADIA
== END 2018-09-25 10:20 | disposition home or self-care (01) ==
LOC: DI.WCP 10:19
PROVIDERS: ATTEND Physician Assistant Medical
DX: J18.9 Pneumonia, unspecified organism (principal)
CPT/HCPCS: 71046

== ENCOUNTER 2018-09-29 08:00 | Outpatient (CLI) | payer MEDICARE ==
[2018-09-29 13:13] LABS: BASOPHILS # (AUTO) 0.2 10^3/uL (0.0-0.1); BASOPHILS % (AUTO) 3.9 %; EOSINOPHILS # (AUTO) 0.2 10^3/uL (0.0-0.7); EOSINOPHILS % (AUTO) 3.4 %; HGB - HEMOGLOBIN 12.3 g/dL (12.0-16.0); LYMPHOCYTES # (AUTO) 1.8 10^3/uL (1.5-3.5); LYMPHOCYTES % (AUTO) 30.7 %; MEAN CORPUSCULAR HEMOGLOBIN 30.6 pg (27.0-31.0); MEAN CORPUSCULAR HGB CONC 33.9 g/dL (32.0-36.0); MEAN CORPUSCULAR VOLUME 90.4 fL (81.0-99.0); MEAN PLATELET VOLUME 7.8 fL (7.9-10.8); MONOCYTES # (AUTO) 0.6 10^3/uL (0.0-1.0); MONOCYTES % (AUTO) 10.5 %; NEUTROPHILS # (AUTO) 3.1 10^3/uL (1.5-6.6); NEUTROPHILS % (AUTO) 51.5 %; PLT - PLATELET COUNT 361 10^3/uL (130-450); RED BLOOD COUNT 4.01 10^6/uL (4.20-5.40); RED CELL DISTRIBUTION WIDTH 13.5 % (12.0-15.0)
[2018-09-29 13:23] LABS: ALBUMIN/GLOBULIN RATIO 1.3 (1.0-2.2); BILIRUBIN,TOTAL 0.4 mg/dL (0.2-1.0); CALCIUM 9.6 mg/dL (8.5-10.3); CREATININE 0.7 mg/dL (0.4-1.0); TOTAL PROTEIN 7.1 g/dL (6.7-8.2)
== END 2018-09-29 23:59 | disposition home or self-care (01) ==
LOC: LAB.WCP 08:00
PROVIDERS: ATTEND Physician Assistant Medical
DX: R55 Syncope and collapse (principal)
CPT/HCPCS: 36415; 80053; 84443; 85025

== ENCOUNTER 2018-10-21 07:39 | Outpatient (CLI) | payer MEDICARE ==
[2018-10-21] MEDS ORDERED: GADOBUTROL 7.5 MMOL/7.5 ML VIAL ONE (08:40)
[2018-10-21] MEDS ORDERED: GADOBUTROL 7.5 MMOL/7.5 ML VIAL IVP ONE (08:44)
--- NOTE | 2018-10-21 17:45 | MRI Report ---
Reason: NEAR SYNCOPE Procedure Date: 10/21/2018 Accession Number: [id number] / [id number] Procedure: MRI - Brain W/WO CPT Code: FULL RESULT: MRI BRAIN WITHOUT AND WITH CONTRAST INDICATION: 72-year-old female. Near syncope. The patient also provides a history of left eye light sensitivity and wavy vision in left eye. TECHNIQUE: 1. T1 sagittal and fat saturated T2 coronal. 2. Axial T1 3D, FLAIR, T2, T2*GRE and DWI. 3. 5.5 cc IV Gadavist. T1 3D axial with sagittal and coronal reformations. COMPARISON: None. FINDINGS: There is very mild prominence of cerebral cortical sulci and third and lateral ventricles, considered well within normal limits for stated age. No hydrocephalus. A very mild amount of white matter disease is identified in the supratentorial brain, manifested as focal and confluent T2 hyperintensities that are scattered throughout the periventricular, deep and subcortical white matter bilaterally. A frontoparietal distribution predominates. Signal intensity of cortex and white matter is otherwise unremarkable. Flow voids are demonstrated in the main intracranial arteries. No abnormal diffusion restriction is demonstrated. No evidence of acute or chronic hemorrhage on T2*GRE sequence. No enhancing space-occupying mass lesion is demonstrated. No pathologic meningeal or cranial nerve enhancement is identified. There appears to be normal intravascular contrast enhancement in the dural venous sinuses and deep venous structures. This effectively excludes the possibility of dural venous sinus thrombosis. Limited evaluation of the orbits reveals no gross pathology. The optic globes have a normal appearance. No evidence of choroidal or retinal detachment. No intraocular mass lesion. No abnormal T2 hyperintensity is identified in either optic nerve. The extraocular muscles and lacrimal glands appear symmetric in size. No intraorbital mass lesion is demonstrated. The optic chiasm appears normal and noncompressed. The paranasal sinuses are essentially clear. No significant mastoid or middle ear effusion is demonstrated. Marrow signal intensity in the regional skeletal structures is unremarkable. IMPRESSION: 1. A mild amount of white matter disease is identified in the supratentorial brain as described. The findings are relatively nonspecific, however, this most likely represents chronic microangiopathy. 2. Imaging of the brain is otherwise unremarkable.
== END 2018-10-21 07:40 | disposition home or self-care (01) ==
LOC: DI 07:39
PROVIDERS: ATTEND Physician Assistant Medical
DX: R90.82 White matter disease, unspecified (principal); R55 Syncope and collapse
CPT/HCPCS: 70553; A9585

== ENCOUNTER 2021-05-18 11:26 | Outpatient (CLI) | payer MEDICARE ==
[2021-05-18 18:03] LABS: BASOPHILS % (AUTO) 0.4 %; EOSINOPHILS # (AUTO) 0.2 10^3/uL (0.0-0.7); HCT - HEMATOCRIT 38.2 % (37.0-47.0); HGB - HEMOGLOBIN 11.8 g/dL (12.0-16.0); LYMPHOCYTES # (AUTO) 2.7 10^3/uL (1.5-3.5); LYMPHOCYTES % (AUTO) 35.6 %; MEAN CORPUSCULAR HEMOGLOBIN 28.4 pg (27.0-31.0); MEAN CORPUSCULAR HGB CONC 30.9 g/dL (32.0-36.0); MEAN PLATELET VOLUME 9.6 fL (7.9-10.8); MONOCYTES # (AUTO) 0.9 10^3/uL (0.0-1.0); NEUTROPHILS # (AUTO) 3.8 10^3/uL (1.5-6.6); NEUTROPHILS % (AUTO) 49.7 %; PLT - PLATELET COUNT 367 10^3/uL (130-450); RED BLOOD COUNT 4.15 10^6/uL (4.20-5.40); WHITE BLOOD COUNT 7.6 x10^3/uL (4.8-10.8)
[2021-05-18 18:49] LABS: ALBUMIN 4.2 g/dL (3.2-5.5); ALBUMIN/GLOBULIN RATIO 1.3 (1.0-2.2); ALKALINE PHOSPHATASE 70 IU/L (42-121); ALT ALANINE AMINOTRANSFERASE 21 IU/L (10-60); AST ASPARTATE AMINOTRANSFERASE 24 IU/L (10-42); BILIRUBIN,TOTAL 0.4 mg/dL (0.2-1.0); BUN - BLOOD UREA NITROGEN 12 mg/dL (6-20); CALCIUM 9.6 mg/dL (8.5-10.3); CARBON DIOXIDE - CO2 30 mmol/L (21-32); CHLORIDE 93 mmol/L (101-111); CHOL/HDL RATIO 3.6 (<4.4); CHOLESTEROL 208 mg/dL; CREATININE 0.8 mg/dL (0.4-1.0); GFR - MDRD 70 (>89); GLUCOSE 85 mg/dL (70-100); HDL CHOLESTEROL 57 mg/dL; LDL CHOLESTEROL,CALCULATED 132 mg/dL; LDL/HDL RATIO 2.3 (<4.4); POTASSIUM 4.2 mmol/L (3.5-5.0); SODIUM 133 mmol/L (135-145); TOTAL PROTEIN 7.4 g/dL (6.7-8.2); TRIGLYCERIDES 93 mg/dL; VLDL CHOLESTEROL 19 mg/dL
[2021-05-18 19:02] LABS: THYROID STIMULATING HORMONE 1.37 uIU/mL (0.34-5.60)
== END 2021-05-18 23:59 | disposition home or self-care (01) ==
LOC: LAB.WCP 11:26
PROVIDERS: ATTEND Physician Assistant Medical
DX: I10 Essential (primary) hypertension (principal); R07.9 Chest pain, unspecified; R42 Dizziness and giddiness
CPT/HCPCS: 36415; 80053; 80061; 83721; 84443; 85025

== ENCOUNTER 2021-11-14 05:13 | Emergency (ER) | payer MEDICARE ==
[2021-11-14] MEDS ORDERED: ACETAMINOPHEN 325 MG TABLET PO STA (05:33)
[2021-11-14] MEDS ORDERED: LIDOCAINE PATCH 5% TOP STA (05:34)
--- NOTE | 2021-11-14 06:59 | ED Physician Documentation ---
PD HPI UPPER EXT INJURY - Stated complaint Stated Complaint: R ELBOW PX - Chief complaint Chief Complaint: Ext Problem - History obtained from History obtained from: Patient - Additonal information Additional information: Patient is a 76-year-old female with a history of spinal stenosis and Arthritis presenting for evaluation of right elbow pain that has been present since yesterday morning upon awakening.Patient denies falling or hitting the elbow against anything. She does recall lifting up a heavy Bag of books with that arm The day prior to onset of pain. She reports the pain as throbbing and worse with movements. It is better at rest.She has tried heat which has helped a little. She has only been taking her regular medications Including gabapentin without improvement. She denies previous injuries to the site. She denies pain elsewhere. She denies rash, fever,Chest pain. 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 HEENT: None Psych: Anxiety Musculoskeletal: Osteoarthritis Derm: None - Past Surgical History Past Surgical History: Yes General: Cholecystectomy, Appendectomy Ortho: Hip replacement, Spine surgery /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: Hysterectomy HEENT: Tonsil/Adenoidectomy - Present Medications Home Medications: Ambulatory Orders Medication Instructions Recorded Confirmed Gabapentin 900 mg PO DAILY PM 01/13/18 02/24/18 lisinopriL [Lisinopril] 20 mg PO DAILY 01/13/18 02/24/18 Benzonatate [Tessalon Perle] 100 - 200 mg PO TID PRN #30 capsule 08/10/18 Ondansetron Odt [Zofran] 4 mg TL Q6H PRN #10 tablet 08/10/18 Lidocaine Patch 5% [Lidoderm Patch] 1 patch TOP DAILY PRN #10 patch 11/14/21 Naproxen 250 mg PO BID PRN #15 tablet 11/14/21 - Allergies Allergies/Adverse Reactions: Allergies Allergy/AdvReac Type Severity Reaction Status Date / Time Penicillins Allergy Rash Verified 11/14/21 05:20 - Social History Does the pt smoke?: No Smoking Status: Never smoker Does the pt drink ETOH?: No Does the pt have substance abuse?: No - Immunizations Immunizations are current?: Yes - POLST Patient has POLST: No PD ED PE NORMAL - General General: Alert and oriented X 3, No acute distress, Well developed/nourished - HEENT HEENT: Atraumatic - Respiratory Respiratory: No respiratory distress - Derm Derm: No rash - Extremities Extremities: No deformity, No edema, Other (Tenderness to lateral elbow with no visible deformity,Patient is able to Extend the elbow fully, Pain is worse with flexion, No overlying swelling, rash/erythema or warmth, Distal pulses intact). No: No tenderness to palpate Results - Vitals Vitals: Vital Signs - 24 hr 11/14/21 11/14/21 05:20 07:06 Temperature 36.5 C 36.5 C Heart Rate 83 81 Respiratory 15 16 Rate Blood Pressure 160/71 H 149/72 H O2 Saturation 98 99 Oxygen O2 Source Room air PD MEDICAL DECISION MAKING - ED course Complexity details: reviewed results, d/w patient ED course: Patient is a 76-year-old female with a evaluation of right elbow pain.Although she denies fall, she does report possible strain when lifting a bag of heavy books with that arm. On exam I do not see signs of septic joint And she is afebrile. There is no rash Or visible swelling. An x-ray was obtained which did not show a fracture or dislocation. We will place extremity into sling but patient also counseled on need for range of motion exercises If she is able to tolerate it. She is advised on need for close follow-up and has a primary care doctor's appointment on . She is aware of strict return precautions . Departure - Departure Disposition: Home, Self Care Clinical Impression: Strain of right elbow Qualifiers: Encounter type: initial encounter Qualified Code(s): S46.911A - Strain of unspecified muscle, fascia and tendon at shoulder and upper arm level, right arm, initial encounter Condition: Stable Instructions: ED Sprain Elbow Follow-Up: Karey Montiel PA-C [Primary Care Provider] - Prescriptions: Lidocaine Patch 5% [Lidoderm Patch] 1 patch TOP DAILY PRN #10 patch PRN Reason: pain Naproxen 250 mg PO BID PRN #15 tablet PRN Reason: Pain Comments: Celeste - You were seen for pain to your R elbow. This could be from a recent strain injury. We will place the elbow into a sling for comfort but I would recommend getting it out of the sling several times a day and Making sure you are stretching the joint by flexing and extending it. I have also sent a prescription for medication that may help you with the pain to the community pharmacy at the hospital. Please make sure to keep your appointment with your primary care doctor on for close follow-up. Please return the emergency department with worsening symptoms such as redness, swelling, fever, increased pain. Discharge Date/Time: 11/14/21 07:23
[2021-11-14 07:07] VITALS: BP 149/72
--- NOTE | 2021-11-14 07:29 | XRAY Report ---
PROCEDURE: Elbow 3 View RT INDICATIONS: pain TECHNIQUE: 3 views of the elbow were acquired. COMPARISON: None FINDINGS: Bones: No definite fractures or dislocations. No suspicious bony lesions. Soft tissues: Possible small elbow joint effusion. No suspicious soft tissue calcifications. No radi opaque soft tissue foreign body. IMPRESSION: No definite acute fracture. Questionable joint effusion although study is limited by patient position ing. Consider repeat imaging to reevaluate. If there is persistent clinical concern for a radiographically occult fracture, recommend immobilizat ion and repeat imaging in 10 to 14 days. No significant discrepancy with initial interpretation by overnight radiologist. Reviewed by: Francis Vargas MD on 11/14/2021 7:28 AM PDT Approved by: Francis Vargas MD on 11/14/2021 7:28 AM PDT Station ID: [id number]
== END 2021-11-14 07:23 | disposition home or self-care (01) ==
LOC: ED 05:13
DX: S46.911A Strain of unspecified muscle, fascia and tendon at shoulder and upper arm level, right arm, initial encounter (principal); X50.0XXA Overexertion from strenuous movement or load, initial encounter; I10 Essential (primary) hypertension
CPT/HCPCS: 73080; 99282; 99283; A9270

== ENCOUNTER 2021-11-17 09:35 | Outpatient (CLI) | payer MEDICARE ==
[2021-11-17 09:59] LABS: BASOPHILS % (AUTO) 0.3 %; EOSINOPHILS # (AUTO) 0.2 10^3/uL (0.0-0.7); EOSINOPHILS % (AUTO) 2.8 %; HCT - HEMATOCRIT 35.7 % (37.0-47.0); HGB - HEMOGLOBIN 11.8 g/dL (12.0-16.0); LYMPHOCYTES # (AUTO) 2.5 10^3/uL (1.5-3.5); LYMPHOCYTES % (AUTO) 34.1 %; MEAN CORPUSCULAR HEMOGLOBIN 30.4 pg (27.0-31.0); MEAN CORPUSCULAR HGB CONC 33.1 g/dL (32.0-36.0); MEAN PLATELET VOLUME 8.6 fL (7.9-10.8); MONOCYTES # (AUTO) 0.6 10^3/uL (0.0-1.0); MONOCYTES % (AUTO) 8.3 %; NEUTROPHILS # (AUTO) 3.9 10^3/uL (1.5-6.6); NEUTROPHILS % (AUTO) 54.1 %; PLT - PLATELET COUNT 340 10^3/uL (130-450); RED BLOOD COUNT 3.88 10^6/uL (4.20-5.40); RED CELL DISTRIBUTION WIDTH 12.6 % (12.0-15.0); WHITE BLOOD COUNT 7.2 x10^3/uL (4.8-10.8)
[2021-11-17 10:24] LABS: ALBUMIN 3.9 g/dL (3.2-5.5); ALBUMIN/GLOBULIN RATIO 1.2 (1.0-2.2); BILIRUBIN,TOTAL 0.2 mg/dL (0.2-1.0); CREATININE 0.7 mg/dL (0.4-1.0); TOTAL PROTEIN 7.2 g/dL (6.7-8.2)
[2021-11-17 10:25] LABS: CALCIUM 8.8 mg/dL (8.5-10.3); POTASSIUM 3.9 mmol/L (3.5-5.0)
[2021-11-17 10:38] LABS: FERRITIN 58.3 ng/mL (11.0-306.8)
--- NOTE | 2021-11-17 13:33 | XRAY Report ---
PROCEDURE: Ribs 2 View LT INDICATIONS: LUQ PAIN TECHNIQUE: 2 views of the left ribs were acquired. COMPARISON: None FINDINGS: Surgical changes and devices: None. Bones and chest wall: No fractures or dislocations. No suspicious bony lesions. Overlying soft tis sues appear unremarkable. Lungs and pleura: The visualized lung appears clear. No pleural effusions or pneumothorax are visib le. IMPRESSION: No displaced rib fracture. Reviewed by: Cynthia Clark MD, PhD on 11/17/2021 1:31 PM PDT Approved by: Cynthia Clark MD, PhD on 11/17/2021 1:31 PM PDT Station ID: [id number]
== END 2021-11-17 09:36 | disposition home or self-care (01) ==
LOC: LAB 09:35 → DI 09:36
PROVIDERS: ATTEND Physician Assistant Medical
DX: R10.12 Left upper quadrant pain (principal); D64.9 Anemia, unspecified
CPT/HCPCS: 36415; 80053; 82607; 82728; 82746; 83540; 84466; 85025

== ENCOUNTER 2021-11-30 06:17 | Outpatient (CLI) | payer MEDICARE ==
[2021-11-30] MEDS ORDERED: DIATR MEGLU/DIATRIZOATE SODIUM 120 ML BOTTLE PO ONE (08:05)
--- NOTE | 2021-11-30 16:42 | CT Report ---
PROCEDURE: Abdomen/Pelvis WO INDICATIONS: LUQ pain TECHNIQUE: Noncontrast 5 mm thick sections acquired from the diaphragms to the symphysis. 5 mm coronal and sagi ttal reformats were then performed. For radiation dose reduction, the following was used: automated exposure control, adjustment of mA and/or kV according to patient size. COMPARISON: CT abdomen pelvis 01/13/2018. FINDINGS: Image quality: There is limited visualization of the pelvis secondary to artifact from hip arthropla sty. ABDOMEN: Lung bases: Lung bases are clear. Heart size is normal. Solid organs: Liver and spleen are normal in size. Gallbladder has been removed. Pancreas is malinda l in contours. No adrenal nodules. Kidneys are normal in size, without hydronephrosis or nephrolith iasis. Peritoneum and bowel: Unenhanced bowel loops demonstrate normal wall thickness and caliber. No free fluid or air. Moderate colonic stool without obstruction. Nodes and vessels: No retroperitoneal or mesenteric adenopathy by size criteria. Aorta and inferior vena cava are normal in caliber. Miscellaneous: No ventral hernias. PELVIS: Genitourinary: Bladder wall thickness is normal. Miscellaneous: No inguinal hernias or adenopathy. Bones: No suspicious bony lesions. No vertebral body compression fractures. Left hip arthroplasty. IMPRESSION: Prominent colonic stool consistent constipation. No obstruction. Reviewed by: Luna Good MD on 11/30/2021 4:40 PM PDT Approved by: Luna Good MD on 11/30/2021 4:40 PM PDT Station ID: [id number]
== END 2021-11-30 06:18 | disposition home or self-care (01) ==
LOC: DI 06:17
PROVIDERS: ATTEND Physician Assistant Medical
DX: R10.12 Left upper quadrant pain (principal)
CPT/HCPCS: 74176; Q9963